=== PATIENT | female | born 1990 | race African-American/Black ===

== ENCOUNTER 2016-07-18 12:25 | Emergency (ER) | payer OTHER ==
[~2016-07-18 12:25] MED LIST: MOTR200T44 PO; PERCOCET PO; PNV-CAP5 PO
[2016-07-18] MEDS ORDERED: KETOROLAC 30 MG/ML VIAL (J1885) As Ordered ONE (12:58)
[2016-07-18] MEDS ORDERED: ONDANSETRON 4MG/2ML VIAL (J2405) As Ordered ONE (12:58)
[2016-07-18 13:11] LABS: CONTROL LINE UCG INT CTR LINE PRESENT
[2016-07-18 13:15] LABS: BASO % 0.2 % (0.0-1.0); EOS # 0.1 K/mm3 (0.0-0.50); EOS % 1.7 % (0.0-3.0); LARGE UNSTAINED CELL # 0.2 K/mm3 (0.0-0.4); LARGE UNSTAINED CELL % 2.3 % (0.0-4.0); LYMPH # 1.1 K/mm3 (1.5-6.5); LYMPH % 14.9 % (24.0-44.0); MEAN CORPUSCULAR HEMOGLOBIN 30.2 pg (27.0-33.0); MEAN CORPUSCULAR HGB CONC 32.2 g/dl (32.0-36.5); MEAN CORPUSCULAR VOLUME 93.7 fl (80.0-96.0); MONO # 0.6 K/mm3 (0.0-0.8); MONO % 8.5 % (0.0-5.0); NEUTROPHILS # 5.2 K/mm3 (1.8-7.7); NEUTROPHILS % 72.5 % (36.0-66.0); PLATELET COUNT, AUTOMATED 208 k/mm3 (150-450); RED CELL DISTRIBUTION WIDTH 11.8 % (11.5-14.5); WHITE BLOOD COUNT 7.1 K/mm3 (4.0-10.0)
[2016-07-18 13:37] LABS: ALBUMIN 3.4 GM/DL (3.2-5.2); ALBUMIN/GLOBULIN RATIO 0.64 (1.00-1.93); ALKALINE PHOSPHATASE 82 U/L (45-117); ALT/SGPT 33 U/L (12-78); ANION GAP 7 MEQ/L (8-16); AST/SGOT 25 U/L (15-37); BILIRUBIN,DIRECT < 0.1 MG/DL (0.0-0.2); BILIRUBIN,TOTAL 0.3 MG/DL (0.2-1.0); BLOOD UREA NITROGEN 11 MG/DL (7-18); CALCIUM LEVEL 8.9 MG/DL (8.5-10.1); CARBON DIOXIDE LEVEL 26 MEQ/L (21-32); CHLORIDE LEVEL 106 MEQ/L (98-107); CREATININE FOR GFR 0.63 MG/DL (0.55-1.02); GLOMERULAR FILTRATION RATE > 60.0 (>60); GLUCOSE, FASTING 77 MG/DL (70-105); POTASSIUM SERUM 4.1 MEQ/L (3.5-5.1); SODIUM LEVEL 139 MEQ/L (136-145); TOTAL PROTEIN 8.7 GM/DL (6.4-8.2)
--- NOTE | 2016-07-18 14:14 | EDDOCDS ---
Physician Documentation [facility] Name: Andreea Mello Age: 26 yrs Sex: Female : 1990 Arrival Date: 07/18/2016 Time: 12:25 Bed I5 / M5 Private MD: Kenneth Ba A. Disposition: 07/18/16 14:04 Discharged to Home/Self Care. Impression: Abdominal and pelvic pain - epigastric, Low back pain, Abnormal uterine and vaginal bleeding, unspecified. - Condition is Stable. - Discharge Instructions: Back Pain, Adult, Gastritis, Adult, Metrorrhagia. - Prescriptions for Naprosyn 500 mg Oral Tablet - take 1 tablet by ORAL route 2 times per day take with food; 30 tablet. Zantac 300 mg Oral Tablet - take 1 tablet by ORAL route At bedtime; 30 tablet. - Medication Reconciliation form. - Follow up: Emergency Department; When: As needed. Follow up: Kenneth Ba; When: Call to arrange an appointment; Reason: Wound/Symptom Recheck, Recheck today's complaints, Worsening of conditions, Continuance of care. Follow up: David Montague MD; When: Call to arrange an appointment; Reason: Wound/Symptom Recheck, Recheck today's complaints, Worsening of conditions, Continuance of care. - Problem is an ongoing problem. - Symptoms have improved. Historical: - Allergies: Amoxicillin; PENICILLINS; SULFA (SULFONAMIDES); - Home Meds: 1. Tylenol 1000mg Oral tab as needed - PMHx: Hypertension; - PSHx: ; LEEP Procedure; - Social history: Smoking status: Patient uses tobacco products, heavy tobacco smoker. No barriers to communication noted, The patient speaks fluent Peruvian, Speaks appropriately for age. - Family history: Not pertinent. - : The pt / caregiver states he / she is not on anticoagulants. Home medication list is obtained from the patient. - Exposure Risk Screening:: None identified. 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 5 in. (165.10 cm) (R); 13:40 Pain 5/10; pml 14:12 BP 131 / 67; Pulse 68; Resp 18; Temp 97.9; Pulse Ox 100% ; rn1 12:27 Body Mass Index 32.45 (88.45 kg, 165.10 cm) dd6 MDM: 12:51 NS 0.9% 1000 ml IV at bolus once ordered. cc10 12:51 Ondansetron 4 mg IVP once ordered. cc10 12:51 ketorolac 30 mg IVP once ordered. cc10 12:51 IV Saline Lock ordered. cc10 12:51 Undress patient appropriately for examination ordered. cc10 12:52 Basic Metabolic Profile Ordered. EDMS 12:52 CBC with Diff Ordered. EDMS 12:52 Lipase Ordered. EDMS 12:52 Liver Profile Ordered. EDMS 12:52 Urinalysis Ordered. EDMS 12:52 NOTHING BY MOUTH+DIET ordered. EDMS 13:00 UCG- In Lab Ordered. EDMS 13:01 Financial registration complete. lg 13:42 [facility] Payment Agreement was scanned into [employer] and attached to record. lg 13:45 Basic Metabolic Profile Reviewed. cc10 13:45 CBC with Diff Reviewed. cc10 13:45 Liver Profile Reviewed. cc10 13:45 Lipase Reviewed. cc10 13:45 Urinalysis Reviewed. cc10 13:45 UCG- In Lab Reviewed. cc10 Administered Medications: 13:08 Drug: NS 0.9% 1000 ml [sodium chloride 0.9 % injection solution] Route: IV; Rate: pml bolus; Site: right antecubital; 14:12 Follow up: IV Status: Completed infusion; IV Intake: 1000ml pml 13:19 Drug: Ondansetron 4 mg [ondansetron HCl 2 mg/mL intravenous solution (2 mL)] Route: pml IVP; Site: right antecubital; 13:20 Drug: ketorolac 30 mg [ketorolac 30 mg/mL (1 mL) injection solution (1 mL)] Route: IVP; pml Site: right antecubital; 13:40 Follow up: Pain 5/10 Adult; Response: Pain is decreased pml Signatures: Dispatcher [employer] EDMS Poppy Rich, Misbah Crawley lg Shanita Cade,RN RN pml Zeb Nunez PA-C PA-C cc10 Rosa Odonnell,RN RN kc3 The chart was reviewed and I authenticate all verbal orders and agree with the evaluation and treatment provided.Corrections: (The following items were deleted from the chart) 13:00 12:51 UCG by Nursing ordered. cc10 ttb Attachments: 13:42 [facility] Payment Agreement lg MTDD
--- NOTE | 2016-07-18 14:14 | EDDOCDS ---
Nurse's Notes [facility] Name: Andreea Mello Age: 26 yrs Sex: Female : 1990 Arrival Date: 07/18/2016 Time: 12:25 Bed I5 / M5 Private MD: Kenneth Ba A. Diagnosis: Abdominal and pelvic pain-epigastric;Low back pain;Abnormal uterine and vaginal bleeding, unspecified Presentation: 07/18 12:28 Presenting complaint: Patient states: back and epigastric abd pain x 1 week with kc3 headache, chills reported. Pt also reports vaginal bleeding x 2 days. Risk factors: the patient reports moderate vaginal bleeding. Adult Sepsis Screening: The patient does not have new or worsening altered mentation. Patient's respiratory rate is less than 22. Systolic blood pressure is greater than 100. Patient has a qSOFA score of 0- Negative Sepsis Screen. Suicide/Homicide risk assessment- the patient denies having any suicidal and/or homicidal ideations and does not present with any other emotional, behavioral or mental health complaints. Status: Patient is not a family services coordinator or dependent. Transition of care: patient was not received from another setting of care. 12:28 Acuity: VANESSA Level 3 kc3 12:28 Method Of Arrival: Walkin/Carried/Asstd kc3 Triage Assessment: 12:31 General: Appears uncomfortable, Behavior is appropriate for age, cooperative. Pain: kc3 Location: abdomen Pain currently is 6 out of 10 on a pain scale. HIV screening NA for this visit Offered previously. Neurological: Level of Consciousness is awake, alert, obeys commands. GI: Abdomen is flat, Denies diarrhea, nausea, vomiting. Derm: Skin is normal. 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 Tylenol 1000mg Oral tab as needed - PMHx: Hypertension; - PSHx: ; LEEP Procedure; - Social history: Smoking status: Patient uses tobacco products, heavy tobacco smoker. No barriers to communication noted, The patient speaks fluent Kenyan, Speaks appropriately for age. - Family history: Not pertinent. - : The pt / caregiver states he / she is not on anticoagulants. Home medication list is obtained from the patient. - Exposure Risk Screening:: None identified. Screenin:06 Screening information is obtained from the patient. Fall risk: No risks identified. pml Assistance ADL's: requires no assistance with activities of daily living. Abuse/DV Screen: The patient / caregiver reports he/she is: not in a situation that causes fear, pain or injury. Nutritional screening: No deficits noted. Advance Directives: Currently, there is no health care proxy. home support is adequate. Assessment: 13:06 General: Appears in no apparent distress, comfortable, Behavior is appropriate for age, pml cooperative. Pain: Location: epigastric area Pain currently is 9 out of 10 on a pain scale. Neurological: Level of Consciousness is awake, alert, Oriented to person, place, time. Cardiovascular: Capillary refill < 3 seconds. Respiratory: Airway is patent Respiratory effort is even, unlabored. GI: Abdomen is non- distended Bowel sounds present X 4 quads. Abd is soft X 4 quads Abd is tender to palpation in right upper quadrant and left upper quadrant Denies nausea, vomiting. Derm: Skin is normal. 14:12 General: Appears in no apparent distress, Behavior is appropriate for age, cooperative. pml Pain: Location: epigastric area and abdomen Pain currently is 5 out of 10 on a pain scale. Neurological: Level of Consciousness is awake, alert, Oriented to person, place, time. Cardiovascular: Capillary refill < 3 seconds. Respiratory: Airway is patent Respiratory effort is even, unlabored. Derm: Skin is normal. Vital Signs: 12:27 BP 136 / 72; Pulse 97; Resp 18 S; Temp 99.5(O); Pulse Ox 100% on R/A; Weight 88.45 kg dd6 (R); Height 5 ft. 5 in. (165.10 cm) (R); 13:40 Pain 5/10; pml 14:12 BP 131 / 67; Pulse 68; Resp 18; Temp 97.9; Pulse Ox 100% ; rn1 12:27 Body Mass Index 32.45 (88.45 kg, 165.10 cm) dd6 Vitals: 12:27 Log In Time: July 18, 2016 at 12:25. dd6 ED Course: 12:26 Patient visited by Reji Garza PCA. dd6 12:26 Kenneth Ba is Private Physician. dd6 12:26 Patient moved to Waiting dd6 12:28 Patient moved to Pre RCE dd6 12:30 Triage Initiated kc3 12:33 Patient moved to Triage 1 ttb 12:43 Zeb [facility]une[facility] cc10 12:43 Sonja Hu MD is Attending Physician. cc10 12:44 Patient visited by Zeb Nunez PA-C. cc10 12:44 Patient visited by Zeb Nunez PA-C. cc10 12:55 Patient moved to I5 / M5 ttb 13:00 Urinalysis Sent. ttb 13:06 The patient / caregiver is instructed regarding the plan of care and ED course. Patient pml has correct armband on for positive identification. Placed in gown. Bed in low position. Call light in reach. Side rails up X2. 13:06 Inserted peripheral IV: 20gauge IV in right antecubital area and blood collected. pml Patient tolerated the procedure well. 13:08 Patient visited by Shanita Cade RN. pml 13:40 Patient name changed from Andreea\S\Haley\S\Mello\S\ to Andreea\S\M\S\Mello. EDMS 13:42 [facility] Payment Agreement was scanned into [employer] and attached to record. lg 14:04 Kenneth Ba is Referral Physician. cc10 14:04 David Montague MD is Referral Physician. cc10 14:12 Discontinued lock intact, bleeding controlled, pressure dressing applied, No pml redness/swelling at site. No procedures done that require assistance. Administered Medications: 13:08 Drug: NS 0.9% 1000 ml [sodium chloride 0.9 % injection solution] Route: IV; Rate: pml bolus; Site: right antecubital; 14:12 Follow up: IV Status: Completed infusion; IV Intake: 1000ml pml 13:19 Drug: Ondansetron 4 mg [ondansetron HCl 2 mg/mL intravenous solution (2 mL)] Route: pml IVP; Site: right antecubital; 13:20 Drug: ketorolac 30 mg [ketorolac 30 mg/mL (1 mL) injection solution (1 mL)] Route: IVP; pml Site: right antecubital; 13:40 Follow up: Pain 5/10 Adult; Response: Pain is decreased pml Intake: 14:12 IV: 1000.00ml; Total: 1000.00ml. pml Order Results: Lab Order: Basic Metabolic Profile; SPEC'M 07/18/16 13:05 Test: GLUCOSE, FASTING; Value: 77; Range: 70-105; Units: MG/DL; Status: F Test: BLOOD UREA NITROGEN; Value: 11; Range: 7-18; Units: MG/DL; Status: F Test: CREATININE FOR GFR; Value: 0.63; Range: 0.55-1.02; Units: MG/DL; Status: F Test: GLOMERULAR FILTRATION RATE; Value: > 60.0; Range: >60; Status: F Test: SODIUM LEVEL; Value: 139; Range: 136-145; Units: MEQ/L; Status: F Test: POTASSIUM SERUM; Value: 4.1; Range: 3.5-5.1; Units: MEQ/L; Status: F Test: CHLORIDE LEVEL; Value: 106; Range: 98-107; Units: MEQ/L; Status: F Test: CARBON DIOXIDE LEVEL; Value: 26; Range: 21-32; Units: MEQ/L; Status: F Test: ANION GAP; Value: 7; Range: 8-16; Abnormal: Below low normal; Units: MEQ/L; Status: F Test: CALCIUM LEVEL; Value: 8.9; Range: 8.5-10.1; Units: MG/DL; Status: F Test Note: ; Units are mL/min/1.73 m2 Chronic Kidney Disease Staging per NKF: Stage I & II GFR >=60 Normal to Mildly Decreased Stage III GFR 30-59 Moderately Decreased Stage IV GFR 15-29 Severely Decreased Stage V GFR <15 Very Little GFR Left ESRD GFR <15 on AUTO FORMER MACHINE OPERATOR Lab Order: CBC with Diff; SPEC'M 07/18/16 13:05 Test: WHITE BLOOD COUNT; Value: 7.1; Range: 4.0-10.0; Units: K/mm3; Status: F Test: RED BLOOD COUNT; Value: 4.41; Range: 4.00-5.40; Units: M/mm3; Status: F Test: HEMOGLOBIN; Value: 13.3; Range: 12.0-16.0; Units: g/dl; Status: F Test: HEMATOCRIT; Value: 41.3; Range: 36.0-47.0; Units: %; Status: F Test: MEAN CORPUSCULAR VOLUME; Value: 93.7; Range: 80.0-96.0; Units: fl; Status: F Test: MEAN CORPUSCULAR HEMOGLOBIN; Value: 30.2; Range: 27.0-33.0; Units: pg; Status: F Test: MEAN CORPUSCULAR HGB CONC; Value: 32.2; Range: 32.0-36.5; Units: g/dl; Status: F Test: RED CELL DISTRIBUTION WIDTH; Value: 11.8; Range: 11.5-14.5; Units: %; Status: F Test: PLATELET COUNT, AUTOMATED; Value: 208; Range: 150-450; Units: k/mm3; Status: F Test: NEUTROPHILS %; Value: 72.5; Range: 36.0-66.0; Abnormal: Above high normal; Units: %; Status: F Test: LYMPH %; Value: 14.9; Range: 24.0-44.0; Abnormal: Below low normal; Units: %; Status: F Test: MONO %; Value: 8.5; Range: 0.0-5.0; Abnormal: Above high normal; Units: %; Status: F Test: EOS %; Value: 1.7; Range: 0.0-3.0; Units: %; Status: F Test: BASO %; Value: 0.2; Range: 0.0-1.0; Units: %; Status: F Test: LARGE UNSTAINED CELL %; Value: 2.3; Range: 0.0-4.0; Units: %; Status: F Test: NEUTROPHILS #; Value: 5.2; Range: 1.8-7.7; Units: K/mm3; Status: F Test: LYMPH #; Value: 1.1; Range: 1.5-6.5; Abnormal: Below low normal; Units: K/mm3; Status: F Test: MONO #; Value: 0.6; Range: 0.0-0.8; Units: K/mm3; Status: F Test: EOS #; Value: 0.1; Range: 0.0-0.50; Units: K/mm3; Status: F Test: BASO #; Value: 0.0; Range: 0.0-0.2; Units: K/mm3; Status: F Test: LARGE UNSTAINED CELL #; Value: 0.2; Range: 0.0-0.4; Units: K/mm3; Status: F Lab Order: Lipase; [facility] 07/18/16 13:05 Test: LIPASE; Value: 141; Range: 73-393; Units: U/L; Status: F Lab Order: Liver Profile; [facility] 07/18/16 13:05 Test: AST/SGOT; Value: 25; Range: 15-37; Units: U/L; Status: F Test: ALT/SGPT; Value: 33; Range: 12-78; Units: U/L; Status: F Test: ALKALINE PHOSPHATASE; Value: 82; Range: 45-117; Units: U/L; Status: F Test: BILIRUBIN,TOTAL; Value: 0.3; Range: 0.2-1.0; Units: MG/DL; Status: F Test: BILIRUBIN,DIRECT; Value: < 0.1; Range: 0.0-0.2; Units: MG/DL; Status: F Test: TOTAL PROTEIN; Value: 8.7; Range: 6.4-8.2; Abnormal: Above high normal; Units: GM/DL; Status: F Test: ALBUMIN; Value: 3.4; Range: 3.2-5.2; Units: GM/DL; Status: F Test: ALBUMIN/GLOBULIN RATIO; Value: 0.64; Range: 1.00-1.93; Abnormal: Below low normal; Status: F Lab Order: Urinalysis; [facility] 07/18/16 12:54 Test: APPEARANCE, URINE; Value: CLEAR; Range: CLEAR; Status: F Test: COLOR, URINE; Value: YELLOW; Range: YELLOW; Status: F Test: PH,URINE; Value: 6.0; Range: 5.0-9.0; Units: UNITS; Status: F Test: SPECIFIC GRAVITY URINE AUTO; Value: 1.027; Range: 1.002-1.035; Status: F Test: PROTEIN, URINE AUTO; Value: NEGATIVE; Range: NEGATIVE; Units: mg/dL; Status: F Test: GLUCOSE, URINE (UA) AUTO; Value: NEGATIVE; Range: NEGATIVE; Units: mg/dL; Status: F Test: KETONE, URINE AUTO; Value: NEGATIVE; Range: NEGATIVE; Units: mg/dL; Status: F Test: UROBILINOGEN, URINE AUTO; Value: 0.2; Range: 0.0-2.0; Units: mg/dL; Status: F Test: BILIRUBIN, URINE AUTO; Value: NEGATIVE; Range: NEGATIVE; Status: F Test: NITRITE, URINE AUTO; Value: NEGATIVE; Range: NEGATIVE; Status: F Test: LEUKOCYTE ESTERASE, URINE AUTO; Value: NEGATIVE; Range: NEGATIVE; Status: F Test: BLOOD, URINE BLOOD; Value: NEGATIVE; Range: NEGATIVE; Status: F Test: WBC, URINE AUTO; Value: 1; Range: 0-3; Units: /HPF; Status: F Test: RBC, URINE AUTO; Value: 2; Range: 0-3; Units: /HPF; Status: F Test: BACTERIA, URINE AUTO; Value: NEGATIVE; Range: NEGATIVE; Status: F Test: SQUAMOUS EPITHELIAL CELL UR AU; Value: 0; Range: 0-6; Units: /HPF; Status: F Test: MUCUS, URINE; Value: SMALL; Range: NEGATIVE; Status: F Test: HYALINE CAST, URINE AUTO; Value: 0; Range: 0-1; Units: /LPF; Status: F Lab Order: UCG- In Lab; SPEC'M 07/18/16 13:00 Test: URINE PREG TEST; Value: NEGATIVE; Range: NEGATIVE; Status: F Outcome: 14:04 Discharge ordered by Provider. cc10 14:12 Discharge Assessment: Patient awake, alert and oriented x 3. No cognitive and/or pml functional deficits noted. Patient verbalized understanding of disposition instructions. patient administered narcotics - no. The following High Risk Discharge criteria are identified: None. Discharged to home ambulatory. Condition: good Condition: stable. Discharge instructions given to patient, Instructed on discharge instructions, follow up and referral plans. medication usage, Demonstrated understanding of instructions, medications, Pt was receptive of discharge instructions/ teaching. Prescriptions given X 2. CT Study completed. Property sent home with patient. 14:13 Patient left the ED. pml Signatures: Dispatcher [employer] EDMS Poppy Rich, Misbah Reg lg Reji Garza, INSURANCE SALES ASSISTANT INSURANCE SALES ASSISTANT dd6 Shanita Cade RN RN Meenu Luong RN RN ttb [place], Zeb, PA-C PA-C cc10 Edilberto Brizuela rn1 Rosa Odonnell,INOCENCIA RN kc3 MTDD
--- NOTE | 2016-07-20 15:13 | EDDOCDS ---
Physician Documentation [facility] Name: Andreea Mello Age: 26 yrs Sex: Female : 1990 Arrival Date: 07/18/2016 Time: 12:25 Bed I5 / M5 Private MD: Kenneth Ba A. Disposition: 07/18/16 14:04 Discharged to Home/Self Care. Impression: Abdominal and pelvic pain - epigastric, Low back pain, Abnormal uterine and vaginal bleeding, unspecified. - Condition is Stable. - Discharge Instructions: Back Pain, Adult, Gastritis, Adult, Metrorrhagia. - Prescriptions for Naprosyn 500 mg Oral Tablet - take 1 tablet by ORAL route 2 times per day take with food; 30 tablet. Zantac 300 mg Oral Tablet - take 1 tablet by ORAL route At bedtime; 30 tablet. - Medication Reconciliation form. - Follow up: Emergency Department; When: As needed. Follow up: Kenneth Ba; When: Call to arrange an appointment; Reason: Wound/Symptom Recheck, Recheck today's complaints, Worsening of conditions, Continuance of care. Follow up: David Montague MD; When: Call to arrange an appointment; Reason: Wound/Symptom Recheck, Recheck today's complaints, Worsening of conditions, Continuance of care. - Problem is an ongoing problem. - Symptoms have improved. Historical: - Allergies: Amoxicillin; PENICILLINS; SULFA (SULFONAMIDES); - Home Meds: 1. Tylenol 1000mg Oral tab as needed - PMHx: Hypertension; - PSHx: ; LEEP Procedure; - Social history: Smoking status: Patient uses tobacco products, heavy tobacco smoker. No barriers to communication noted, The patient speaks fluent Russian, Speaks appropriately for age. - Family history: Not pertinent. - : The pt / caregiver states he / she is not on anticoagulants. Home medication list is obtained from the patient. - Exposure Risk Screening:: None identified. 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 5 in. (165.10 cm) (R); 13:40 Pain 5/10; pml 14:12 BP 131 / 67; Pulse 68; Resp 18; Temp 97.9; Pulse Ox 100% ; rn1 12:27 Body Mass Index 32.45 (88.45 kg, 165.10 cm) dd6 MDM: 12:51 NS 0.9% 1000 ml IV at bolus once ordered. cc10 12:51 Ondansetron 4 mg IVP once ordered. cc10 12:51 ketorolac 30 mg IVP once ordered. cc10 12:51 IV Saline Lock ordered. cc10 12:51 Undress patient appropriately for examination ordered. cc10 12:52 Basic Metabolic Profile Ordered. EDMS 12:52 CBC with Diff Ordered. EDMS 12:52 Lipase Ordered. EDMS 12:52 Liver Profile Ordered. EDMS 12:52 Urinalysis Ordered. EDMS 12:52 NOTHING BY MOUTH+DIET ordered. EDMS 13:00 UCG- In Lab Ordered. EDMS 13:01 Financial registration complete. lg 13:42 [facility] Payment Agreement was scanned into [employer] and attached to record. lg 13:45 Basic Metabolic Profile Reviewed. cc10 13:45 CBC with Diff Reviewed. cc10 13:45 Liver Profile Reviewed. cc10 13:45 Lipase Reviewed. cc10 13:45 Urinalysis Reviewed. cc10 13:45 UCG- In Lab Reviewed. cc10 07/19 08:12 T-Sheet-- Draft Copy was scanned into [employer] and attached to record. [facility] Administered Medications: 07/18 13:08 Drug: NS 0.9% 1000 ml [sodium chloride 0.9 % injection solution] Route: IV; Rate: pml bolus; Site: right antecubital; 14:12 Follow up: IV Status: Completed infusion; IV Intake: 1000ml pml 13:19 Drug: Ondansetron 4 mg [ondansetron HCl 2 mg/mL intravenous solution (2 mL)] Route: pml IVP; Site: right antecubital; 13:20 Drug: ketorolac 30 mg [ketorolac 30 mg/mL (1 mL) injection solution (1 mL)] Route: IVP; pml Site: right antecubital; 13:40 Follow up: Pain 5/10 Adult; Response: Pain is decreased pml Signatures: Dispatcher [employer] Poppy Nolasco, Reg Reg lg Shanita CadeRN RN pml Zeb Nunez, PALucianoC PA-C cc10 Rosa Odonnell RN RN 3 Sonja Ruelas The chart was reviewed and I authenticate all verbal orders and agree with the evaluation and treatment provided.Corrections: (The following items were deleted from the chart) 13:00 12:51 UCG by Nursing ordered. cc10 ttb Attachments: 13:42 [facility] [place] 07/19 08:12 T-Sheet-- Draft Copy [facility] Chart Complete MTDD
--- NOTE | 2016-07-20 15:13 | EDDOCDS ---
Physician Documentation [facility] Name: Andreea Mello Age: 26 yrs Sex: Female : 1990 Arrival Date: 07/18/2016 Time: 12:25 Bed I5 / M5 Private MD: Kenneth Ba A. Disposition: 07/18/16 14:04 Discharged to Home/Self Care. Impression: Abdominal and pelvic pain - epigastric, Low back pain, Abnormal uterine and vaginal bleeding, unspecified. - Condition is Stable. - Discharge Instructions: Back Pain, Adult, Gastritis, Adult, Metrorrhagia. - Prescriptions for Naprosyn 500 mg Oral Tablet - take 1 tablet by ORAL route 2 times per day take with food; 30 tablet. Zantac 300 mg Oral Tablet - take 1 tablet by ORAL route At bedtime; 30 tablet. - Medication Reconciliation form. - Follow up: Emergency Department; When: As needed. Follow up: Kenneth Ba; When: Call to arrange an appointment; Reason: Wound/Symptom Recheck, Recheck today's complaints, Worsening of conditions, Continuance of care. Follow up: David Montague MD; When: Call to arrange an appointment; Reason: Wound/Symptom Recheck, Recheck today's complaints, Worsening of conditions, Continuance of care. - Problem is an ongoing problem. - Symptoms have improved. Historical: - Allergies: Amoxicillin; PENICILLINS; SULFA (SULFONAMIDES); - Home Meds: 1. Tylenol 1000mg Oral tab as needed - PMHx: Hypertension; - PSHx: ; LEEP Procedure; - Social history: Smoking status: Patient uses tobacco products, heavy tobacco smoker. No barriers to communication noted, The patient speaks fluent British, Speaks appropriately for age. - Family history: Not pertinent. - : The pt / caregiver states he / she is not on anticoagulants. Home medication list is obtained from the patient. - Exposure Risk Screening:: None identified. 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 5 in. (165.10 cm) (R); 13:40 Pain 5/10; pml 14:12 BP 131 / 67; Pulse 68; Resp 18; Temp 97.9; Pulse Ox 100% ; rn1 12:27 Body Mass Index 32.45 (88.45 kg, 165.10 cm) dd6 MDM: 12:51 NS 0.9% 1000 ml IV at bolus once ordered. cc10 12:51 Ondansetron 4 mg IVP once ordered. cc10 12:51 ketorolac 30 mg IVP once ordered. cc10 12:51 IV Saline Lock ordered. cc10 12:51 Undress patient appropriately for examination ordered. cc10 12:52 Basic Metabolic Profile Ordered. EDMS 12:52 CBC with Diff Ordered. EDMS 12:52 Lipase Ordered. EDMS 12:52 Liver Profile Ordered. EDMS 12:52 Urinalysis Ordered. EDMS 12:52 NOTHING BY MOUTH+DIET ordered. EDMS 13:00 UCG- In Lab Ordered. EDMS 13:01 Financial registration complete. lg 13:42 [facility] Payment Agreement was scanned into [employer] and attached to record. lg 13:45 Basic Metabolic Profile Reviewed. cc10 13:45 CBC with Diff Reviewed. cc10 13:45 Liver Profile Reviewed. cc10 13:45 Lipase Reviewed. cc10 13:45 Urinalysis Reviewed. cc10 13:45 UCG- In Lab Reviewed. cc10 07/19 08:12 T-Sheet-- Draft Copy was scanned into [employer] and attached to record. [facility] Administered Medications: 07/18 13:08 Drug: NS 0.9% 1000 ml [sodium chloride 0.9 % injection solution] Route: IV; Rate: pml bolus; Site: right antecubital; 14:12 Follow up: IV Status: Completed infusion; IV Intake: 1000ml pml 13:19 Drug: Ondansetron 4 mg [ondansetron HCl 2 mg/mL intravenous solution (2 mL)] Route: pml IVP; Site: right antecubital; 13:20 Drug: ketorolac 30 mg [ketorolac 30 mg/mL (1 mL) injection solution (1 mL)] Route: IVP; pml Site: right antecubital; 13:40 Follow up: Pain 5/10 Adult; Response: Pain is decreased pml Signatures: Dispatcher [employer] Poppy Nolasco, Reg Reg lg Shanita CadeRN RN pml Zeb Nunez, PALucianoC PA-C cc10 Rosa Odonnell RN RN 3 Sonja Ruelas The chart was reviewed and I authenticate all verbal orders and agree with the evaluation and treatment provided.Corrections: (The following items were deleted from the chart) 13:00 12:51 UCG by Nursing ordered. cc10 ttb Attachments: 13:42 [facility] [place] 07/19 08:12 T-Sheet-- Draft Copy [facility] Chart Complete MTDD
--- NOTE | 2016-07-20 15:15 | EDDOCDS ---
Nurse's Notes [facility] Name: Andreea Mello Age: 26 yrs Sex: Female : 1990 Arrival Date: 07/18/2016 Time: 12:25 Bed I5 / M5 Private MD: Kenneth Ba A. Diagnosis: Abdominal and pelvic pain-epigastric;Low back pain;Abnormal uterine and vaginal bleeding, unspecified Presentation: 07/18 12:28 Presenting complaint: Patient states: back and epigastric abd pain x 1 week with kc3 headache, chills reported. Pt also reports vaginal bleeding x 2 days. Risk factors: the patient reports moderate vaginal bleeding. Adult Sepsis Screening: The patient does not have new or worsening altered mentation. Patient's respiratory rate is less than 22. Systolic blood pressure is greater than 100. Patient has a qSOFA score of 0- Negative Sepsis Screen. Suicide/Homicide risk assessment- the patient denies having any suicidal and/or homicidal ideations and does not present with any other emotional, behavioral or mental health complaints. Status: Patient is not a application services manager or dependent. Transition of care: patient was not received from another setting of care. 12:28 Acuity: VANESSA Level 3 kc3 12:28 Method Of Arrival: Walkin/Carried/Asstd kc3 Triage Assessment: 12:31 General: Appears uncomfortable, Behavior is appropriate for age, cooperative. Pain: kc3 Location: abdomen Pain currently is 6 out of 10 on a pain scale. HIV screening NA for this visit Offered previously. Neurological: Level of Consciousness is awake, alert, obeys commands. GI: Abdomen is flat, Denies diarrhea, nausea, vomiting. Derm: Skin is normal. 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 Tylenol 1000mg Oral tab as needed - PMHx: Hypertension; - PSHx: ; LEEP Procedure; - Social history: Smoking status: Patient uses tobacco products, heavy tobacco smoker. No barriers to communication noted, The patient speaks fluent Barbadian, Speaks appropriately for age. - Family history: Not pertinent. - : The pt / caregiver states he / she is not on anticoagulants. Home medication list is obtained from the patient. - Exposure Risk Screening:: None identified. Screenin:06 Screening information is obtained from the patient. Fall risk: No risks identified. pml Assistance ADL's: requires no assistance with activities of daily living. Abuse/DV Screen: The patient / caregiver reports he/she is: not in a situation that causes fear, pain or injury. Nutritional screening: No deficits noted. Advance Directives: Currently, there is no health care proxy. home support is adequate. Assessment: 13:06 General: Appears in no apparent distress, comfortable, Behavior is appropriate for age, pml cooperative. Pain: Location: epigastric area Pain currently is 9 out of 10 on a pain scale. Neurological: Level of Consciousness is awake, alert, Oriented to person, place, time. Cardiovascular: Capillary refill < 3 seconds. Respiratory: Airway is patent Respiratory effort is even, unlabored. GI: Abdomen is non- distended Bowel sounds present X 4 quads. Abd is soft X 4 quads Abd is tender to palpation in right upper quadrant and left upper quadrant Denies nausea, vomiting. Derm: Skin is normal. 14:12 General: Appears in no apparent distress, Behavior is appropriate for age, cooperative. pml Pain: Location: epigastric area and abdomen Pain currently is 5 out of 10 on a pain scale. Neurological: Level of Consciousness is awake, alert, Oriented to person, place, time. Cardiovascular: Capillary refill < 3 seconds. Respiratory: Airway is patent Respiratory effort is even, unlabored. Derm: Skin is normal. Vital Signs: 12:27 BP 136 / 72; Pulse 97; Resp 18 S; Temp 99.5(O); Pulse Ox 100% on R/A; Weight 88.45 kg dd6 (R); Height 5 ft. 5 in. (165.10 cm) (R); 13:40 Pain 5/10; pml 14:12 BP 131 / 67; Pulse 68; Resp 18; Temp 97.9; Pulse Ox 100% ; rn1 12:27 Body Mass Index 32.45 (88.45 kg, 165.10 cm) dd6 Vitals: 12:27 Log In Time: July 18, 2016 at 12:25. dd6 ED Course: 12:26 Patient visited by Reji Garza PCA. dd6 12:26 Kenneth Ba is Private Physician. dd6 12:26 Patient moved to Waiting dd6 12:28 Patient moved to Pre RCE dd6 12:30 Triage Initiated kc3 12:33 Patient moved to Triage 1 ttb 12:43 Zeb Nunez PA-C [facility]. cc10 12:43 Sonja Hu MD is Attending Physician. cc10 12:44 Patient visited by Zeb Nunez PA-C. cc10 12:44 Patient visited by Zeb Nunez PA-C. cc10 12:55 Patient moved to I5 / M5 ttb 13:00 Urinalysis Sent. ttb 13:06 The patient / caregiver is instructed regarding the plan of care and ED course. Patient pml has correct armband on for positive identification. Placed in gown. Bed in low position. Call light in reach. Side rails up X2. 13:06 Inserted peripheral IV: 20gauge IV in right antecubital area and blood collected. pml Patient tolerated the procedure well. 13:08 Patient visited by Shanita Cade RN. pml 13:40 Patient name changed from Andreea\S\Haley\S\Mello\S\ to Andreea\S\M\S\Mello. EDMS 13:42 [facility] [place] was scanned into [employer] and attached to record. lg 14:04 Kenneth Ba is Referral Physician. cc10 14:04 David Montague MD is Referral Physician. cc10 14:12 Discontinued lock intact, bleeding controlled, pressure dressing applied, No pml redness/swelling at site. No procedures done that require assistance. 07/19 08:12 T-Sheet-- Draft Copy was scanned into [employer] and attached to record. [facility] Administered Medications: 07/18 13:08 Drug: NS 0.9% 1000 ml [sodium chloride 0.9 % injection solution] Route: IV; Rate: pml bolus; Site: right antecubital; 14:12 Follow up: IV Status: Completed infusion; IV Intake: 1000ml pml 13:19 Drug: Ondansetron 4 mg [ondansetron HCl 2 mg/mL intravenous solution (2 mL)] Route: pml IVP; Site: right antecubital; 13:20 Drug: ketorolac 30 mg [ketorolac 30 mg/mL (1 mL) injection solution (1 mL)] Route: IVP; pml Site: right antecubital; 13:40 Follow up: Pain 5/10 Adult; Response: Pain is decreased pml Intake: 14:12 IV: 1000.00ml; Total: 1000.00ml. pml Order Results: Lab Order: Basic Metabolic Profile; SPEC'M 07/18/16 13:05 Test: GLUCOSE, FASTING; Value: 77; Range: 70-105; Units: MG/DL; Status: F Test: BLOOD UREA NITROGEN; Value: 11; Range: 7-18; Units: MG/DL; Status: F Test: CREATININE FOR GFR; Value: 0.63; Range: 0.55-1.02; Units: MG/DL; Status: F Test: GLOMERULAR FILTRATION RATE; Value: > 60.0; Range: >60; Status: F Test: SODIUM LEVEL; Value: 139; Range: 136-145; Units: MEQ/L; Status: F Test: POTASSIUM SERUM; Value: 4.1; Range: 3.5-5.1; Units: MEQ/L; Status: F Test: CHLORIDE LEVEL; Value: 106; Range: 98-107; Units: MEQ/L; Status: F Test: CARBON DIOXIDE LEVEL; Value: 26; Range: 21-32; Units: MEQ/L; Status: F Test: ANION GAP; Value: 7; Range: 8-16; Abnormal: Below low normal; Units: MEQ/L; Status: F Test: CALCIUM LEVEL; Value: 8.9; Range: 8.5-10.1; Units: MG/DL; Status: F Test Note: ; Units are mL/min/1.73 m2 Chronic Kidney Disease Staging per NKF: Stage I & II GFR >=60 Normal to Mildly Decreased Stage III GFR 30-59 Moderately Decreased Stage IV GFR 15-29 Severely Decreased Stage V GFR <15 Very Little GFR Left ESRD GFR <15 on CUSTODIAL LABORER Lab Order: CBC with Diff; SPEC07/18/16 13:05 Test: WHITE BLOOD COUNT; Value: 7.1; Range: 4.0-10.0; Units: K/mm3; Status: F Test: RED BLOOD COUNT; Value: 4.41; Range: 4.00-5.40; Units: M/mm3; Status: F Test: HEMOGLOBIN; Value: 13.3; Range: 12.0-16.0; Units: g/dl; Status: F Test: HEMATOCRIT; Value: 41.3; Range: 36.0-47.0; Units: %; Status: F Test: MEAN CORPUSCULAR VOLUME; Value: 93.7; Range: 80.0-96.0; Units: fl; Status: F Test: MEAN CORPUSCULAR HEMOGLOBIN; Value: 30.2; Range: 27.0-33.0; Units: pg; Status: F Test: MEAN CORPUSCULAR HGB CONC; Value: 32.2; Range: 32.0-36.5; Units: g/dl; Status: F Test: RED CELL DISTRIBUTION WIDTH; Value: 11.8; Range: 11.5-14.5; Units: %; Status: F Test: PLATELET COUNT, AUTOMATED; Value: 208; Range: 150-450; Units: k/mm3; Status: F Test: NEUTROPHILS %; Value: 72.5; Range: 36.0-66.0; Abnormal: Above high normal; Units: %; Status: F Test: LYMPH %; Value: 14.9; Range: 24.0-44.0; Abnormal: Below low normal; Units: %; Status: F Test: MONO %; Value: 8.5; Range: 0.0-5.0; Abnormal: Above high normal; Units: %; Status: F Test: EOS %; Value: 1.7; Range: 0.0-3.0; Units: %; Status: F Test: BASO %; Value: 0.2; Range: 0.0-1.0; Units: %; Status: F Test: LARGE UNSTAINED CELL %; Value: 2.3; Range: 0.0-4.0; Units: %; Status: F Test: NEUTROPHILS #; Value: 5.2; Range: 1.8-7.7; Units: K/mm3; Status: F Test: LYMPH #; Value: 1.1; Range: 1.5-6.5; Abnormal: Below low normal; Units: K/mm3; Status: F Test: MONO #; Value: 0.6; Range: 0.0-0.8; Units: K/mm3; Status: F Test: EOS #; Value: 0.1; Range: 0.0-0.50; Units: K/mm3; Status: F Test: BASO #; Value: 0.0; Range: 0.0-0.2; Units: K/mm3; Status: F Test: LARGE UNSTAINED CELL #; Value: 0.2; Range: 0.0-0.4; Units: K/mm3; Status: F Lab Order: Lipase; [facility] 07/18/16 13:05 Test: LIPASE; Value: 141; Range: 73-393; Units: U/L; Status: F Lab Order: Liver Profile; [facility] 07/18/16 13:05 Test: AST/SGOT; Value: 25; Range: 15-37; Units: U/L; Status: F Test: ALT/SGPT; Value: 33; Range: 12-78; Units: U/L; Status: F Test: ALKALINE PHOSPHATASE; Value: 82; Range: 45-117; Units: U/L; Status: F Test: BILIRUBIN,TOTAL; Value: 0.3; Range: 0.2-1.0; Units: MG/DL; Status: F Test: BILIRUBIN,DIRECT; Value: < 0.1; Range: 0.0-0.2; Units: MG/DL; Status: F Test: TOTAL PROTEIN; Value: 8.7; Range: 6.4-8.2; Abnormal: Above high normal; Units: GM/DL; Status: F Test: ALBUMIN; Value: 3.4; Range: 3.2-5.2; Units: GM/DL; Status: F Test: ALBUMIN/GLOBULIN RATIO; Value: 0.64; Range: 1.00-1.93; Abnormal: Below low normal; Status: F Lab Order: Urinalysis; [facility] 07/18/16 12:54 Test: APPEARANCE, URINE; Value: CLEAR; Range: CLEAR; Status: F Test: COLOR, URINE; Value: YELLOW; Range: YELLOW; Status: F Test: PH,URINE; Value: 6.0; Range: 5.0-9.0; Units: UNITS; Status: F Test: SPECIFIC GRAVITY URINE AUTO; Value: 1.027; Range: 1.002-1.035; Status: F Test: PROTEIN, URINE AUTO; Value: NEGATIVE; Range: NEGATIVE; Units: mg/dL; Status: F Test: GLUCOSE, URINE (UA) AUTO; Value: NEGATIVE; Range: NEGATIVE; Units: mg/dL; Status: F Test: KETONE, URINE AUTO; Value: NEGATIVE; Range: NEGATIVE; Units: mg/dL; Status: F Test: UROBILINOGEN, URINE AUTO; Value: 0.2; Range: 0.0-2.0; Units: mg/dL; Status: F Test: BILIRUBIN, URINE AUTO; Value: NEGATIVE; Range: NEGATIVE; Status: F Test: NITRITE, URINE AUTO; Value: NEGATIVE; Range: NEGATIVE; Status: F Test: LEUKOCYTE ESTERASE, URINE AUTO; Value: NEGATIVE; Range: NEGATIVE; Status: F Test: BLOOD, URINE BLOOD; Value: NEGATIVE; Range: NEGATIVE; Status: F Test: WBC, URINE AUTO; Value: 1; Range: 0-3; Units: /HPF; Status: F Test: RBC, URINE AUTO; Value: 2; Range: 0-3; Units: /HPF; Status: F Test: BACTERIA, URINE AUTO; Value: NEGATIVE; Range: NEGATIVE; Status: F Test: SQUAMOUS EPITHELIAL CELL UR AU; Value: 0; Range: 0-6; Units: /HPF; Status: F Test: MUCUS, URINE; Value: SMALL; Range: NEGATIVE; Status: F Test: HYALINE CAST, URINE AUTO; Value: 0; Range: 0-1; Units: /LPF; Status: F Lab Order: UCG- In Lab; SPEC'M 07/18/16 13:00 Test: URINE PREG TEST; Value: NEGATIVE; Range: NEGATIVE; Status: F Outcome: 14:04 Discharge ordered by Provider. cc10 14:12 Discharge Assessment: Patient awake, alert and oriented x 3. No cognitive and/or pml functional deficits noted. Patient verbalized understanding of disposition instructions. patient administered narcotics - no. The following High Risk Discharge criteria are identified: None. Discharged to home ambulatory. Condition: good Condition: stable. Discharge instructions given to patient, Instructed on discharge instructions, follow up and referral plans. medication usage, Demonstrated understanding of instructions, medications, Pt was receptive of discharge instructions/ teaching. Prescriptions given X 2. CT Study completed. Property sent home with patient. 14:13 Patient left the ED. pml Signatures: Dispatcher [employer] EDMS Poppy Rich, Reg Reg lg Reji Garza, BRUSH PAINTER BRUSH PAINTER dd6 Shanita Cade,RN RN pml Meenu Wiseman, RN RN ttb Zeb Nunez, PA-C PA-C cc10 Edilberto Brizuela rn1 Rosa Odonnell RN RN kc3 Suraj, Sonja hyman Chart Complete MTDD
== END 2016-07-18 14:13 | disposition home or self-care (01) ==
LOC: M ED 12:25
DX: N93.9 Abnormal uterine and vaginal bleeding, unspecified (principal); M54.5 Low back pain; I10 Essential (primary) hypertension; Z72.0 Tobacco use; Z88.0 Allergy status to penicillin; Z88.2 Allergy status to sulfonamides
CPT/HCPCS: 36415; 80048; 80076; 81001; 83690; 84703; 85025; 96361; 96374; 96375; 99284; J1885; J2405

== ENCOUNTER → 2017-01-29 | Outpatient (REF) | payer OTHER ==
[~2017-01-29] MED LIST changes: +ZANT300T PO
[2017-01-29 18:18] LABS: MEAN CORPUSCULAR HEMOGLOBIN 31.4 pg (27.0-33.0); MEAN CORPUSCULAR HGB CONC 33.7 g/dl (32.0-36.5); MEAN CORPUSCULAR VOLUME 93.1 fl (80.0-96.0); RED CELL DISTRIBUTION WIDTH 12.3 % (11.5-14.5); WHITE BLOOD COUNT 4.9 K/mm3 (4.0-10.0)
[2017-01-29 22:03] LABS: HCG, SERUM QUANTITATIVE 12792 MIU/ML
== END ==
LOC: M WHC 17:02
PROVIDERS: ATTEND Obstetrics & Gynecology
DX: O36.80X0 Pregnancy with inconclusive fetal viability, not applicable or unspecified (principal)

== ENCOUNTER 2017-02-04 11:10 | Emergency (ER) | payer OTHER ==
[~2017-02-04] VITALS: Ht 165.1 cm; Wt 90.5 kg
[~2017-02-04 11:10] MED LIST changes: -ZANT300T PO
[2017-02-04 11:20] VITALS: BP 114/70
[2017-02-04] MEDS ORDERED: ZANT300T PO (12:00)
--- NOTE | 2017-02-06 08:19 | ECGEPIP ---
Stationary ECG Study [facility] - ED Test Date: 2017-02-04 Pat Name: REESE FRANCIS Department: Room: - Gender: F Track Fitter: ct : 1990 Requested By: Sonja Hu Order Number: [id number] Reading MD: Sonja Hu Measurements Intervals [place] Rate: 68 P: 40 TX: 185 QRS: 36 QRSD: 100 T: 12 QT: 384 QTc: 410 Interpretive Statements SINUS RHYTHM NO PRIOR FOR COMPARISON Electronically Signed On 02-06-2017 8:19:30 EDT by Sonja Hu
== END 2017-02-04 12:05 | disposition home or self-care (01) ==
LOC: M ED 12:03
DX: O26.891 Other specified pregnancy related conditions, first trimester (principal); R07.9 Chest pain, unspecified; R21 Rash and other nonspecific skin eruption; O99.331 Smoking (tobacco) complicating pregnancy, first trimester; F17.210 Nicotine dependence, cigarettes, uncomplicated; Z3A.01 Less than 8 weeks gestation of pregnancy

== ENCOUNTER → 2017-03-06 | Outpatient (REF) | payer OTHER ==
[~2017-03-06] MED LIST changes: +ZANT300T PO
== END ==
LOC: M LAB REF 12:44
PROVIDERS: ATTEND Obstetrics & Gynecology
DX: Z34.81 Encounter for supervision of other normal pregnancy, first trimester (principal)

== ENCOUNTER → 2017-07-01 | Outpatient (CLI) | payer OTHER ==
[2017-07-01 15:53] LABS: HEMOGLOBIN 11.3 g/dl (12.0-16.0); MEAN CORPUSCULAR HEMOGLOBIN 31.1 pg (27.0-33.0); MEAN CORPUSCULAR HGB CONC 34.2 g/dl (32.0-36.5); MEAN CORPUSCULAR VOLUME 90.9 fl (80.0-96.0); PLATELET COUNT, AUTOMATED 267 10^3/uL (150-450); RED BLOOD COUNT 3.63 10^6/uL (4.00-5.40); RED CELL DISTRIBUTION WIDTH 11.9 % (11.5-14.5); WHITE BLOOD COUNT 9.9 10^3/uL (4.0-10.0)
[2017-07-01 16:01] LABS: GLUCOSE CHALLENGE TEST 1 HOUR 83 MG/DL (LESS THAN 140)
== END ==
LOC: M LAB 13:35
DX: Z34.82 Encounter for supervision of other normal pregnancy, second trimester (principal); Z36.89 Encounter for other specified antenatal screening
CPT/HCPCS: 82950

== ENCOUNTER 2017-08-26 13:57 | Outpatient (CLI) | payer OTHER ==
[2017-08-26] MEDS: ACETAMINOPHEN TAB 650MG DOSE (2X325MG) PO (14:57)
[2017-08-26 15:19] LABS: HEMATOCRIT 32.7 % (36.0-47.0); HEMOGLOBIN 11.4 g/dl (12.0-16.0); MEAN CORPUSCULAR HEMOGLOBIN 31.8 pg (27.0-33.0); MEAN CORPUSCULAR HGB CONC 34.9 g/dl (32.0-36.5); MEAN CORPUSCULAR VOLUME 91.3 fl (80.0-96.0); PLATELET COUNT, AUTOMATED 221 10^3/uL (150-450); RED BLOOD COUNT 3.58 10^6/uL (4.00-5.40); RED CELL DISTRIBUTION WIDTH 12.2 % (11.5-14.5); WHITE BLOOD COUNT 9.4 10^3/uL (4.0-10.0)
== END 2017-08-26 19:05 | disposition home or self-care (01) ==
LOC: M LDO 13:57
DX: O99.89 Other specified diseases and conditions complicating pregnancy, childbirth and the puerperium (principal); Z3A.35 35 weeks gestation of pregnancy; V49.9XXA Car occupant (driver) (passenger) injured in unspecified traffic accident, initial encounter; Z88.0 Allergy status to penicillin; Z88.5 Allergy status to narcotic agent; Z88.2 Allergy status to sulfonamides; Z91.040 Latex allergy status; Z91.018 Allergy to other foods
CPT/HCPCS: 76815

== ENCOUNTER 2017-09-02 12:00 | Outpatient (CLI) | payer OTHER | END 2017-09-02 16:32 | disposition home or self-care (01) | LOC: M LDO 12:00 | DX: O99.89 Other specified diseases and conditions complicating pregnancy, childbirth and the puerperium (principal); M54.5 Low back pain; Z3A.36 36 weeks gestation of pregnancy ==

== ENCOUNTER → 2017-09-08 | Outpatient (REF) | payer OTHER | LOC: M LAB REF 13:15 | DX: Z34.83 Encounter for supervision of other normal pregnancy, third trimester (principal) ==

== ENCOUNTER 2017-09-22 05:40 | Inpatient (IN) | payer OTHER ==
[2017-09-22] MEDS: LR 1,000 ML IV ×2 (06:23→18:33)
[2017-09-22 06:39] LABS: HEMATOCRIT 32.7 % (36.0-47.0); HEMOGLOBIN 11.3 g/dl (12.0-15.5); MEAN CORPUSCULAR HEMOGLOBIN 31.3 pg (27.0-33.0); MEAN CORPUSCULAR HGB CONC 34.6 g/dl (32.0-36.5); MEAN CORPUSCULAR VOLUME 90.6 fl (80.0-96.0); PLATELET COUNT, AUTOMATED 216 10^3/uL (150-450); RED BLOOD COUNT 3.61 10^6/uL (4.00-5.40); RED CELL DISTRIBUTION WIDTH 12.3 % (11.5-14.5); WHITE BLOOD COUNT 9.7 10^3/uL (4.0-10.0)
[2017-09-22] MEDS ORDERED: MORPHINE PRES-FREE INJ 10 MG/10 ML VIAL (J2274) As Ordered (07:24)
[2017-09-22] MEDS: BICITRA 30ML SOLN UDC PO (07:29)
[2017-09-22] MEDS ORDERED: LR 1,000 ML IV (07:30)
[2017-09-22] MEDS ORDERED: NALOXONE INJ 0.4 MG/1 ML VIAL (J2310) IV ×2 (07:57)
[2017-09-22] MEDS ORDERED: METOCLOPRAMIDE INJ 10MG/2ML VIAL (J2765) IV (07:57)
[2017-09-22] MEDS ORDERED: ONDANSETRON 4MG/2ML VIAL (J2405) IV ×3 (07:57→09:15)
[2017-09-22] MEDS ORDERED: NALBUPHINE HCL 10 MG/ML AMP (J2300) IV ×2 (07:57→09:15)
[2017-09-22 08:54] LABS: CORD GAS HCO3 A 23.1 MEQ/L; CORD GAS O2 SAT A 68.7 %; CORD GAS PCO2 A 50.7 mmHg; CORD GAS PH A 7.276 UNITS; CORD GAS PO2 A 31.1 mmHg; CORD GAS SBC A 20.5 MEQ/L; CORD GAS TCO2 A 24.6 MEQ/L
[2017-09-22 08:58] LABS: CORD GAS ABE V -3.8; CORD GAS HCO3 V 21.2 MEQ/L; CORD GAS O2 SAT V 85.5 %; CORD GAS PCO2 V 38.4 mmHg; CORD GAS PO2 V 45.5 mmHg; CORD GAS SBC V 21.1 MEQ/L; CORD GAS TCO2 V 22.4 MEQ/L
[2017-09-22] MEDS: PRENATAL VITAMINS CHEWABLE TABLET PO (09:00)
[2017-09-22] MEDS: DOCUSATE SODIUM 100 MG CAP PO ×2 (09:00→20:21)
[2017-09-22] MEDS ORDERED: fentaNYL 100 MCG/2 ML INJECTION (J3010) IV (09:15)
[2017-09-22] MEDS ORDERED: KETOROLAC 30 MG/ML VIAL (J1885) IV (09:15)
[2017-09-22] MEDS ORDERED: MEPERIDINE INJ 25 MG/ML VIAL (J2175) IV (09:15)
[2017-09-22] MEDS: RHOGAM 300 MCG (1500 IU) INJ (J2790) IM (11:12)
[2017-09-22] MEDS: MEASLES,MUMPS,RUBELLA VACCINE INJ (MMR-II) (90707) SC (11:13)
[2017-09-22] MEDS: NORCO, ANEXSIA 5/325MG TABLET (HYDROcodone/ACETAMINOPHEN) PO ×2 (14:57→20:23)
[2017-09-22] MEDS: IBUPROFEN 800 MG TAB PO (20:22)
[2017-09-23] MEDS: IBUPROFEN 800 MG TAB PO ×3 (04:44→19:45)
[2017-09-23] MEDS: NORCO, ANEXSIA 5/325MG TABLET (HYDROcodone/ACETAMINOPHEN) PO ×3 (06:49→20:29)
[2017-09-23 07:15] LABS: HEMATOCRIT 27.1 % (36.0-47.0); HEMOGLOBIN 9.4 g/dl (12.0-15.5); MEAN CORPUSCULAR HEMOGLOBIN 31.6 pg (27.0-33.0); MEAN CORPUSCULAR HGB CONC 34.7 g/dl (32.0-36.5); MEAN CORPUSCULAR VOLUME 91.2 fl (80.0-96.0); PLATELET COUNT, AUTOMATED 170 10^3/uL (150-450); RED BLOOD COUNT 2.97 10^6/uL (4.00-5.40); RED CELL DISTRIBUTION WIDTH 12.4 % (11.5-14.5); WHITE BLOOD COUNT 8.8 10^3/uL (4.0-10.0)
[2017-09-23] MEDS: DOCUSATE SODIUM 100 MG CAP PO ×2 (09:19→19:46)
[2017-09-23] MEDS: PRENATAL VITAMINS CHEWABLE TABLET PO (09:19)
[2017-09-24] MEDS: IBUPROFEN 800 MG TAB PO (04:47)
[2017-09-24] MEDS: NORCO, ANEXSIA 5/325MG TABLET (HYDROcodone/ACETAMINOPHEN) PO (04:47)
[2017-09-24] MEDS: DOCUSATE SODIUM 100 MG CAP PO (09:07)
[2017-09-24] MEDS: PRENATAL VITAMINS CHEWABLE TABLET PO (09:07)
== END 2017-09-24 10:50 | disposition home or self-care (01) | DRG 540 ==
LOC: M LDI 05:40 → M OBS 10:32
PROVIDERS: Obstetrics & Gynecology
PROC: 10D00Z1 Extraction of Products of Conception, Low, Open Approach (ICD-10-PCS; principal; 2017-09-22 07:30)
PROC: 0UL70CZ Occlusion of Bilateral Fallopian Tubes with Extraluminal Device, Open Approach (ICD-10-PCS; 2017-09-22 07:30)
DX: O34.211 Maternal care for low transverse scar from previous cesarean delivery (principal); F17.210 Nicotine dependence, cigarettes, uncomplicated; Z37.0 Single live birth; Z3A.39 39 weeks gestation of pregnancy; Z30.2 Encounter for sterilization; Z88.0 Allergy status to penicillin; Z88.2 Allergy status to sulfonamides; O94 Sequelae of complication of pregnancy, childbirth, and the puerperium; Z91.040 Latex allergy status; Z91.018 Allergy to other foods; Z88.5 Allergy status to narcotic agent; O99.334 Smoking (tobacco) complicating childbirth

== ENCOUNTER → 2019-01-28 | Outpatient (REF) | payer OTHER ==
[~2019-01-28] MED LIST changes: +CYCL5TAB PO; +IBUP-1114 PO; +TUMS500C PO; -ZANT300T PO; +ZANT300T9 PO
== END ==
LOC: M LAB REF 16:12
PROVIDERS: ATTEND Physician Assistant
DX: J02.9 Acute pharyngitis, unspecified (principal)

== ENCOUNTER 2019-12-22 08:48 | Emergency (ER) | payer OTHER ==
[~2019-12-22] VITALS: Ht 165.1 cm; Wt 95.9 kg
[2019-12-22] MEDS ORDERED: CLEO300C2 (08:57)
[2019-12-22] MEDS ORDERED: dexameTHASONE 20MG/5ML VIAL (J1100 PER 1MG) IV ONE (09:30)
[2019-12-22] MEDS ORDERED: ACETAMINOPHEN TAB 650MG DOSE (2X325MG) PO ONE (09:30)
[2019-12-22 10:06] LABS: BASO % 0.1 % (0.0-1.0); EOS # 0.1 10^3/uL (0.0-0.5); EOS % 1.3 % (0.0-3.0); HEMATOCRIT 38.7 % (36.0-47.0); HEMOGLOBIN 12.7 g/dl (12.0-15.5); LYMPH # 0.7 10^3/uL (1.5-5.0); LYMPH % 9.1 % (24.0-44.0); MEAN CORPUSCULAR HEMOGLOBIN 29.7 pg (27.0-33.0); MEAN CORPUSCULAR HGB CONC 32.8 g/dl (32.0-36.5); MEAN CORPUSCULAR VOLUME 90.4 fl (80.0-96.0); MONO # 0.8 10^3/uL (0.0-0.8); NEUTROPHILS % 79.2 % (36.0-66.0); PLATELET COUNT, AUTOMATED 215 10^3/uL (150-450); RED BLOOD COUNT 4.28 10^6/uL (4.00-5.40); WHITE BLOOD COUNT 7.6 10^3/uL (4.0-10.0)
[2019-12-22 10:42] LABS: HCG, SERUM QUALITATIVE NEGATIVE (NEGATIVE)
[2019-12-22 10:45] LABS: BLOOD UREA NITROGEN 8 MG/DL (7-18); CALCIUM LEVEL 8.8 MG/DL (8.5-10.1); CARBON DIOXIDE LEVEL 27 MEQ/L (21-32); CHLORIDE LEVEL 109 MEQ/L (98-107); CREATININE FOR GFR 0.65 MG/DL (0.55-1.30); GLOMERULAR FILTRATION RATE > 60.0 (>60); GLUCOSE, FASTING 83 MG/DL (70-100); SODIUM LEVEL 138 MEQ/L (136-145)
[2019-12-22] MEDS ORDERED: ISOVUE-370 76% 100ML VIAL As Ordered ONE (11:06)
--- NOTE | 2019-12-22 11:36 | REP ---
CT neck soft tissues: 12/22/2019. Indication: Sore throat. Technique: Axial images of the neck soft tissues were obtained following administration of IV iodinated contrast with coronal and sagittal reconstructions provided. Comparison: None. Findings: The airway is patent. No drainable fluid collections are present. The visualized vascular structures are normal. There is moderate enlargement of the pharyngeal and palatine tonsils. The submandibular, parotid and thyroid glands are unremarkable. The visualized lungs are clear. Impression: No acute soft tissue pathology of the neck. Electronically Signed by Germán Ignacio DO 12/22/2019 11:28 A
[2019-12-22 12:30] VITALS: BP 133/82
[2019-12-22] MEDS ORDERED: AZITHROMYCIN 250MG TABLET PO ONE (12:30)
[2019-12-22] MEDS ORDERED: AZIT500T5 PO (12:31)
== END 2019-12-22 12:55 | disposition home or self-care (01) ==
LOC: M ED 08:48
DX: J03.90 Acute tonsillitis, unspecified (principal); Z88.0 Allergy status to penicillin; Z88.1 Allergy status to other antibiotic agents; Z88.2 Allergy status to sulfonamides; Z88.5 Allergy status to narcotic agent; Z91.018 Allergy to other foods; Z91.040 Latex allergy status; Z91.048 Other nonmedicinal substance allergy status
CPT/HCPCS: 70491; 80048; 84703; 85025; 87486; 87581; 87633; 87798; 96374; 99284; J1100; Q9967

== ENCOUNTER 2019-12-25 06:30 | Emergency (ER) | payer OTHER ==
[~2019-12-25] VITALS: Ht 165.1 cm; Wt 86.4 kg
[~2019-12-25 06:30] MED LIST changes: +AZIT500T5 PO; +CLEO300C2
[2019-12-25] MEDS ORDERED: ACET-861 PO (06:38)
[2019-12-25] MEDS ORDERED: dexameTHASONE 20MG/5ML VIAL (J1100 PER 1MG) IV ONE (07:00)
[2019-12-25 07:36] LABS: HEMATOCRIT 36.7 % (36.0-47.0); HEMOGLOBIN 12.2 g/dl (12.0-15.5); MEAN CORPUSCULAR HEMOGLOBIN 29.8 pg (27.0-33.0); MEAN CORPUSCULAR HGB CONC 33.2 g/dl (32.0-36.5); MEAN CORPUSCULAR VOLUME 89.7 fl (80.0-96.0); PLATELET COUNT, AUTOMATED 241 10^3/uL (150-450); RED BLOOD COUNT 4.09 10^6/uL (4.00-5.40); WHITE BLOOD COUNT 7.9 10^3/uL (4.0-10.0)
[2019-12-25 07:59] LABS: BLOOD UREA NITROGEN 10 MG/DL (7-18); C REACTIVE PROTEIN QUANTITATIV 8.15 MG/DL (0.00-0.30); CALCIUM LEVEL 8.4 MG/DL (8.5-10.1); CARBON DIOXIDE LEVEL 27 MEQ/L (21-32); CHLORIDE LEVEL 107 MEQ/L (98-107); CREATININE FOR GFR 0.67 MG/DL (0.55-1.30); ERYTHROCYTE SEDIMENTATION RATE 49 mm/hr (0-20); GLOMERULAR FILTRATION RATE > 60.0 (>60); GLUCOSE, FASTING 85 MG/DL (70-100); POTASSIUM SERUM 3.6 MEQ/L (3.5-5.1); SODIUM LEVEL 138 MEQ/L (136-145)
[2019-12-25 08:00] LABS: HCG, SERUM QUALITATIVE NEGATIVE (NEGATIVE)
[2019-12-25 08:02] LABS: EOSINOPHILS 2 % (0-3); LYMPHOCYTES 11 % (16-44); MONO REFLEX EBV COMP NEGATIVE (NEGATIVE); MONOCYTES 9 % (0-5); NEUTROPHILS 78 % (28-66); PLATELET ESTIMATE NORMAL (NORMAL)
[2019-12-25] MEDS ORDERED: NS 1,000 ML IV ONE (08:15)
[2019-12-25] MEDS ORDERED: KETOROLAC 30 MG/ML 1ML VIAL IV ONE (08:30)
[2019-12-25] MEDS ORDERED: PRED20TA PO (09:49)
[2019-12-25] MEDS ORDERED: CEFD1CAP8 PO ×2 (09:49→10:14)
[2019-12-25 10:08] VITALS: BP 115/69
[2019-12-27 14:08] LABS: EBV VIRAL CAPSID AG IgG 93.1 U/mL (0.0-17.9); EBV VIRAL CAPSID AG IgM <36.0 U/mL (0.0-35.9)
== END 2019-12-25 10:10 | disposition home or self-care (01) ==
LOC: M ED 06:30
DX: J03.90 Acute tonsillitis, unspecified (principal); F33.9 Major depressive disorder, recurrent, unspecified; F41.9 Anxiety disorder, unspecified; F17.210 Nicotine dependence, cigarettes, uncomplicated
CPT/HCPCS: 80048; 84703; 85025; 85652; 86140; 86308; 86664; 86665; 87040; 96361; 96374; 96375; 99284; J1100; J1885

== ENCOUNTER 2020-08-07 17:16 | Emergency (ER) | payer OTHER ==
[~2020-08-07] VITALS: Ht 165.1 cm; Wt 88.6 kg
[~2020-08-07 17:16] MED LIST changes: +ACET-861 PO; +CEFD1CAP8 PO; +PRED20TA PO
--- OUTSIDE RECORDS SUMMARY | 2020-08-07 17:22 | CCD ---
Author Author [facility] Organization [facility] Address Unknown Phone Unavailable Care Team Providers Care Labor Training Manager Name Role Phone Dille, E Patsy DDS Unavailable Unavailable Dille, E Patsy DDS Unavailable Unavailable Dille, E Patsy DDS Unavailable Unavailable Dille, E Patsy DDS Unavailable Unavailable Re-disclosure Warning The records that you are about to access may contain information from federally-assisted alcohol or drug abuse programs. If such information is present, then the following federally mandated warning applies: This information has been disclosed to you from records protected by federal confidentiality rules (42 CFR part 2). The federal rules prohibit you from making any further disclosure of this information unless further disclosure is expressly permitted by the written consent of the person to whom it pertains or as otherwise permitted by 42 CFR part 2. A general authorization for the release of medical or other information is NOT sufficient for this purpose. The Federal rules restrict any use of the information to criminally investigate or prosecute any alcohol or drug abuse patient.The records that you are about to access may contain highly sensitive health information, the redisclosure of which is protected by Article 27-F of the [facility] Public Health law. If you continue you may have access to information: Regarding HIV / AIDS; Provided by facilities licensed or operated by the [facility] Office of Mental Health; or Provided by the [facility] Office for People With Developmental Disabilities. If such information is present, then the following [facility] mandated warning applies: This information has been disclosed to you from confidential records which are protected by state law. State law prohibits you from making any further disclosure of this information without the specific written consent of the person to whom it pertains, or as otherwise permitted by law. Any unauthorized further disclosure in violation of state law may result in a fine or skilled nursing sentence or both. A general authorization for the release of medical or other information is NOT sufficient authorization for further disc losure. Family History Family Member Name Family Member Gender Family Member Status Date o f Status Description Data Source(s) Unknown Unknown Problem MEDENT ([facility]) father Unknown Male Problem MEDENT ([facility]) Encounters Encounter Providers Location Date Indications Data Source(s ) Outpatient Attender: Patsy Jovanpat S [facility] 09/27/2019 09:01:06 P M EDT [facility] Medications Medication Brand Name Start Date Product Form Dose Route Admi nistrative Instructions Pharmacy Instructions Status Indications Reaction Description Data Source(s) 20 mg 12/25/2019 12:00:00 AM EDT tablet 20 TAKE THREE TABLETS BY MOUTH EVERY DAY FOR 3 DAYS THEN 2 ONCE DAILY FOR 4 DAYS THEN 1 ONCE DAILY FOR 3 DAYS TAKE THREE TABLETS BY MOUTH EVERY DAY FOR 3 DAYS THEN 2 ONCE DAILY FOR 4 DAYS THEN 1 ONCE DAILY FOR 3 DAYS SOLD: 12/25/2019 [facility] 300 mg 12/25/2019 12:00:00 AM EDT capsule 20 TAKE TWO CAPSULES BY MOUTH EVERY DAY FOR 10 DAYS TAKE TWO CAPSULES BY MOUTH EVERY DAY FOR 10 DAYS SOLD: 12/25/2019 [facility] 500 mg 12/22/2019 12:00:00 AM EDT tablet 5 TAKE ONE TABLET BY MOUTH EVERY DAY TAKE ONE TABLET BY MOUTH EVERY DAY SOLD: 12/22/2019 [facility] 300 mg 12/20/2019 12:00:00 AM EDT capsule 30 TAKE ONE CAPSULE BY MOUTH THREE TIMES A DAY TAKE ONE CAPSULE BY MOUTH THREE TIMES A DAY SOLD: 12/20/2019 [facility] 600 mg 12/20/2019 12:00:00 AM EDT tablet 30 TAKE ONE TABLET BY MOUTH THREE TIMES A DAY FOR 10 DAYS TAKE ONE TABLET BY MOUTH THREE TIMES A DAY FOR 10 DAYS SOLD: 12/20/2019 [facility] 250 mg 09/24/2019 12:00:00 AM EDT tablet 6 TAKE TWO TABLETS BY MOUTH AT ONCE ON THE FIRST DAY THEN TAKE ONE DAILY THEREAFTER TAKE TWO TABLETS BY MOUTH AT ONCE ON THE FIRST DAY THEN TAKE ONE DAILY THEREAFTER SOLD: 09/24/2019 [facility] 250 mg 07/05/2019 12:00:00 AM EST tablet 6 TAKE TWO TABLETS BY MOUTH AT ONCE ON THE FIRST DAY THEN TAKE ONE DAILY THEREAFTER TAKE TWO TABLETS BY MOUTH AT ONCE ON THE FIRST DAY THEN TAKE ONE DAILY THEREAFTER SOLD: 07/05/2019 [facility] Insurance Providers Payer name Policy type / Coverage type Policy ID Covered libertarian ID Covered libertarian's relationship to garay Policy Garay Plan Information [facility] [id number] SP [id number] [facility]) O [id number] S [id number] Medicaid S [id number] S [id number] Managed Care - [facility] P [id number] S [id number] D Managed Care [facility] O [id number] S [id number] Medicaid Dental O [id number] S [id number] Progressive ([place]) Workers Compensation [id number] Self [id number] [facility] Maintenance Organization (HMO) [id number] Self [id number] PROGRESSIVE INSURANCE O [id number] S [id number] [facility] [id number] SP [id number] [employer] Medigap Part B Self [facility] H[facility] Commercial Self [place]ICA[id number] SP [id number] Results ID Date Data Source [id number] 05/28/2020 02:05:00 PM EST [facility] Name Value Range Interpretation Code Description Data Relinda rce(s) Supporting Document(s) SARS coronavirus 2 RNA [facility] This lab was ordered by [facility] and rep orted by [facility]. ID Date Data Source [id number] 05/28/2020 12:00:00 AM EST [facility] Name Value Range Interpretation Code Description Data Erlinda rce(s) Supporting Document(s) SARS-CoV2 Rapid Antigen [facility] This lab [facility] and reported by [facility]. ID Date Data Source [id number] 12/20/2019 12:00:00 AM EDT [facility] Name Value Range Interpretation Code Description Data Erlinda rce(s) Supporting Document(s) SARS coronavirus 2 RNA [Presence] in Res piratory specimen by EMELY with probe detection [facility] This lab was ordered by [facility] and reported by [facility]. Procedure
--- NOTE | 2020-08-07 17:53 | REP ---
INDICATION: felt pop. COMPARISON: None. TECHNIQUE: Four views of the right ankle are presented. FINDINGS: Four views of the right ankle demonstrate intact ankle mortise. No fracture or subluxation is seen. Periarticular soft tissues are unremarkable. IMPRESSION: Negative radiographs of the right ankle. <Electronically signed by Ruddy Hernandez > 08/07/20 1194
--- OUTSIDE RECORDS SUMMARY | 2020-08-07 18:21 | CCD ---
Author Author [facility] Organization [facility] Address Unknown Phone Unavailable Care Team Providers Care Bar Pointer Name Role Phone Dille, E Patsy DDS [...] is protected by Article 27-F of the [facility] Public Health law. If you continue you may have access to information: Regarding HIV / AIDS; Provided by facilities licensed or operated by the [facility] Office of Mental Health; or Provided by the [facility] Office for People With Developmental Disabilities. If such information is present, then the following [facility] mandated warning applies: This information has [...] law may result in a fine or residential sentence or both. A general authorization for the release of medical or other information is NOT sufficient authorization for further disc losure. Family History Family Member Name Family Member Gender Family Member Status Date o f Status Description Data Source(s) Unknown Unknown Problem [facility] ([facility]) father Unknown Male Problem [facility] ([facility]) Encounters Encounter Providers Location Date Indications Data Source(s ) Outpatient Attender: [facility]ats[facility] 09/27/2019 09:01:06 P M EDT [facility] Medications Medication Brand Name Start Date Product [...] DAILY FOR 3 DAYS SOLD: 12/25/2019 [facility] 300 mg 12/25/2019 12:00:00 AM EDT [...] type / Coverage type Policy ID Covered constitution party ID Covered constitution party's relationship to garay Policy Garay Plan Information [employer] [facility] [id number] SP [id number] [facility]) O [id number] S [id number] Medicaid S [id number] S [id number] Managed Care - [facility] P [id number] S [id number] D Managed Care [facility] O [id number] S [id number] Medicaid Dental O [id number] S [id number] Progressive ([place]) Workers Compensation [id number] Self [id number] [facility] Health Maintenance Organization (HMO) [id number] Self [id number] PROGRESSIVE INSURANCE O [id number] S [id number] [employer] [facility] [id number] SP [id number] [employer] Medigap Part B Self [facility] Hmo Commercial Self MEDICAID [id number] SP [id number] Results ID Date Data Source [id number] 05/28/2020 02:05:00 PM EST [facility] Name Value Range Interpretation Code Description Data Erlinda rce(s) Supporting Document(s) SARS coronavirus 2 RNA [facility] This lab was ordered by [facility] and rep orted by [facility]. ID Date Data Source [id number] 05/28/2020 12:00:00 AM EST [facility] Name Value Range Interpretation Code Description Data Erlinda rce(s) Supporting Document(s) SARS-CoV2 Rapid Antigen [facility] This lab was ordered by [facility] and reported by [facility]. ID Date Data Source [id number] 12/20/2019 12:00:00 AM EDT [facility] Name Value Range Interpretation Code Description Data Erlinda rce(s) Supporting Document(s) SARS coronavirus 2 RNA [Presence] in Res piratory specimen by EMELY with probe detection [facility] This lab was ordered by [facility] and reported by [facility]. Procedure
[2020-08-07 18:52] VITALS: BP 123/92
== END 2020-08-07 19:03 | disposition home or self-care (01) ==
LOC: M ED 17:16
DX: S93.401A Sprain of unspecified ligament of right ankle, initial encounter (principal); W00.0XXA Fall on same level due to ice and snow, initial encounter; Y92.015 Private garage of single-family (private) house as the place of occurrence of the external cause; Y93.9 Activity, unspecified; Y99.9 Unspecified external cause status; Z88.0 Allergy status to penicillin; Z88.1 Allergy status to other antibiotic agents; Z88.2 Allergy status to sulfonamides; Z88.6 Allergy status to analgesic agent; Z91.040 Latex allergy status

== ENCOUNTER 2020-08-22 13:56 | Emergency (ER) | payer OTHER ==
[~2020-08-22] VITALS: Ht 165.1 cm; Wt 103.0 kg
[2020-08-22] MEDS ORDERED: VITMTA PO (14:07)
--- NOTE | 2020-08-22 16:25 | REP ---
INDICATION: right lateral ankle injury COMPARISON: None. TECHNIQUE: AP, lateral, bilateral oblique views. FINDINGS: Lateral swelling. No acute fracture or dislocation. Ankle mortise intact. IMPRESSION: Swelling. No acute fracture or dislocation. <Electronically signed by Sander Figueroa > 08/22/20 [id number]
[2020-08-22 17:14] VITALS: BP 130/83
== END 2020-08-22 17:16 | disposition home or self-care (01) ==
LOC: M ED 13:56
DX: S93.401A Sprain of unspecified ligament of right ankle, initial encounter (principal); X50.9XXA Other and unspecified overexertion or strenuous movements or postures, initial encounter; Y92.014 Private driveway to single-family (private) house as the place of occurrence of the external cause; F33.9 Major depressive disorder, recurrent, unspecified; F41.9 Anxiety disorder, unspecified; Z88.0 Allergy status to penicillin; Z88.1 Allergy status to other antibiotic agents; Z88.2 Allergy status to sulfonamides; Z88.5 Allergy status to narcotic agent; Z91.018 Allergy to other foods; Z91.040 Latex allergy status; Z91.048 Other nonmedicinal substance allergy status

== ENCOUNTER 2021-01-01 11:47 | Emergency (ER) | payer OTHER ==
[~2021-01-01] VITALS: Ht 165.1 cm; Wt 103.4 kg
[~2021-01-01 11:47] MED LIST changes: +VITMTA PO
[2021-01-01] MEDS ORDERED: CALC600T61 PO (12:19)
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
[2021-01-01] MEDS ORDERED: LIDO5DIS41 TOP (17:58)
[2021-01-01 18:12] VITALS: BP 140/97
== END 2021-01-01 18:13 | disposition home or self-care (01) ==
LOC: M ED 11:47
DX: S30.0XXA Contusion of lower back and pelvis, initial encounter (principal); S39.012A Strain of muscle, fascia and tendon of lower back, initial encounter; V49.59XA Passenger injured in collision with other motor vehicles in traffic accident, initial encounter; Y92.410 Unspecified street and highway as the place of occurrence of the external cause; M79.9 Soft tissue disorder, unspecified; M51.26 Other intervertebral disc displacement, lumbar region; F33.9 Major depressive disorder, recurrent, unspecified; F41.9 Anxiety disorder, unspecified; Z88.0 Allergy status to penicillin; Z88.1 Allergy status to other antibiotic agents; Z88.2 Allergy status to sulfonamides; Z88.5 Allergy status to narcotic agent; Z91.018 Allergy to other foods; Z91.040 Latex allergy status; Z91.048 Other nonmedicinal substance allergy status; F17.210 Nicotine dependence, cigarettes, uncomplicated

== ENCOUNTER → 2021-01-24 | Outpatient (REF) | payer OTHER ==
[~2021-01-24] MED LIST changes: +CALC600T61 PO; +LIDO5DIS41 TOP
== END ==
LOC: M LAB REF 16:56
PROVIDERS: ATTEND Obstetrics & Gynecology
DX: Z32.02 Encounter for pregnancy test, result negative (principal); N92.5 Other specified irregular menstruation

== ENCOUNTER 2021-11-24 12:37 | Emergency (ER) | payer OTHER ==
[~2021-11-24] VITALS: Ht 165.1 cm; Wt 105.7 kg
[~2021-11-24 12:37] MED LIST changes: -CEFD1CAP8 PO; +CEFD300C41 PO
[2021-11-24 13:17] LABS: BASO % 0.3 % (0.0-1.0); EOS # 0.2 10^3/uL (0.0-0.5); HEMATOCRIT 39.5 % (36.0-47.0); HEMOGLOBIN 13.1 g/dl (12.0-15.5); LYMPH # 1.3 10^3/uL (1.5-5.0); LYMPH % 21.5 % (24.0-44.0); MEAN CORPUSCULAR HEMOGLOBIN 30.1 pg (27.0-33.0); MEAN CORPUSCULAR HGB CONC 33.2 g/dl (32.0-36.5); MEAN CORPUSCULAR VOLUME 90.8 fl (80.0-96.0); MONO # 0.4 10^3/uL (0.0-0.8); MONO % 6.4 % (2.0-8.0); NEUTROPHILS # 4.2 10^3/uL (1.5-8.5); NEUTROPHILS % 68.6 % (36.0-66.0); PLATELET COUNT, AUTOMATED 248 10^3/uL (150-450); RED BLOOD COUNT 4.35 10^6/uL (4.00-5.40); WHITE BLOOD COUNT 6.1 10^3/uL (4.0-10.0)
[2021-11-24 13:31] LABS: PROTHROMBIN TIME 13.6 SECONDS (12.7-14.5)
[2021-11-24 13:32] LABS: PARTIAL THROMBOPLASTIN TIME 31.9 SECONDS (25.9-37.0)
[2021-11-24 13:36] LABS: ERYTHROCYTE SEDIMENTATION RATE 9 mm/hr (0-20)
[2021-11-24 14:11] LABS: ALBUMIN 3.4 GM/DL (3.2-5.2); ALT/SGPT 27 U/L (12-78); BILIRUBIN,DIRECT < 0.1 MG/DL (0.0-0.2); BILIRUBIN,TOTAL 0.2 MG/DL (0.2-1.0); BLOOD UREA NITROGEN 13 MG/DL (7-18); C REACTIVE PROTEIN QUANTITATIV 0.93 MG/DL (0.00-0.30); CALCIUM LEVEL 8.7 MG/DL (8.5-10.1); CARBON DIOXIDE LEVEL 25 MEQ/L (21-32); CHLORIDE LEVEL 110 MEQ/L (98-107); CREATININE FOR GFR 0.78 MG/DL (0.55-1.30); GLOMERULAR FILTRATION RATE > 60.0 (>60); GLUCOSE, FASTING 94 MG/DL (70-100); SODIUM LEVEL 139 MEQ/L (136-145); TOTAL PROTEIN 7.4 GM/DL (6.4-8.2)
[2021-11-24 14:31] VITALS: BP 139/87
== END 2021-11-24 14:34 | disposition home or self-care (01) ==
LOC: M ED 12:37
DX: R22.42 Localized swelling, mass and lump, left lower limb (principal); F41.9 Anxiety disorder, unspecified; F32.A Depression, unspecified; F17.210 Nicotine dependence, cigarettes, uncomplicated; Z91.048 Other nonmedicinal substance allergy status; Z91.018 Allergy to other foods; Z88.0 Allergy status to penicillin; Z88.1 Allergy status to other antibiotic agents; Z88.2 Allergy status to sulfonamides; Z88.5 Allergy status to narcotic agent; Z91.040 Latex allergy status; Z82.49 Family history of ischemic heart disease and other diseases of the circulatory system

== ENCOUNTER → 2023-01-26 | Outpatient (CLI) | payer OTHER | LOC: M WUC 13:06 | PROVIDERS: ATTEND Nurse Practitioner Family | DX: M79.89 Other specified soft tissue disorders (principal) ==

== ENCOUNTER → 2023-02-11 | Outpatient (CLI) | payer OTHER ==
[~2023-02-11] MED LIST changes: +ISOVUE-370 76% 100ML VIAL As Ordered ONE
== END ==
LOC: M RADPRO 11:58
PROVIDERS: ATTEND Obstetrics & Gynecology
DX: N97.9 Female infertility, unspecified (principal)
CPT/HCPCS: 58340; 74740; Q9967

== ENCOUNTER 2023-05-28 10:36 | Emergency (ER) | payer OTHER ==
[~2023-05-28] VITALS: Ht 165.1 cm; Wt 100.0 kg
[~2023-05-28 10:36] MED LIST changes: +CEFD1CAP9 PO; -CEFD300C41 PO; -ISOVUE-370 76% 100ML VIAL As Ordered ONE; +PERC5TAB12 PO
[2023-05-28] MEDS ORDERED: NS 1,000 ML IV ONE (12:25)
[2023-05-28] MEDS ORDERED: dexAMETHasone 20MG/5ML VIAL IV ONE (12:25)
[2023-05-28] MEDS ORDERED: diphenhydrAMINE 50MG/ML VIAL IV ONE (12:25)
[2023-05-28] MEDS ORDERED: METOCLOPRAMIDE INJ 10MG/2ML VIAL IV ONE (12:25)
[2023-05-28 12:55] LABS: BASO % 0.2 % (0.0-1.0); HEMATOCRIT 38.2 % (36.0-47.0); HEMOGLOBIN 12.6 g/dl (12.0-15.5); LYMPH # 0.5 10^3/uL (1.5-5.0); LYMPH % 7.8 % (24.0-44.0); MEAN CORPUSCULAR HEMOGLOBIN 30.1 pg (27.0-33.0); MEAN CORPUSCULAR VOLUME 91.4 fl (80.0-96.0); MONO # 0.4 10^3/uL (0.0-0.8); MONO % 5.4 % (2.0-8.0); NEUTROPHILS # 5.7 10^3/uL (1.5-8.5); NEUTROPHILS % 86.3 % (36.0-66.0); PLATELET COUNT, AUTOMATED 223 10^3/uL (150-450); RED BLOOD COUNT 4.18 10^6/uL (4.00-5.40); WHITE BLOOD COUNT 6.6 10^3/uL (4.0-10.0)
[2023-05-28 13:29] LABS: RSV AMPLIFICATION NEGATIVE (NEGATIVE)
[2023-05-28 13:37] LABS: ERYTHROCYTE SEDIMENTATION RATE 91 mm/hr (0-20)
[2023-05-28] MEDS ORDERED: KETOROLAC 30 MG/ML 1ML VIAL IV ONE (13:45)
[2023-05-28 15:46] VITALS: BP 130/74; TEMP 99.9; O2SAT 98
== END 2023-05-28 15:48 | disposition home or self-care (01) ==
LOC: M ED 10:36
DX: R51.9 Headache, unspecified (principal); Z88.0 Allergy status to penicillin; Z88.1 Allergy status to other antibiotic agents; Z88.2 Allergy status to sulfonamides; Z88.5 Allergy status to narcotic agent; Z91.040 Latex allergy status; Z91.048 Other nonmedicinal substance allergy status
CPT/HCPCS: 70450; 80047; 85025; 85652; 86140; 87631; 96361; 96374; 96375; 99284; J1100; J1200; J1885; J2765